=== PATIENT | male | born 1965 | race Two or more races ===

== ENCOUNTER 2023-11-07 09:17 | Outpatient (CLI) | payer MEDICAID | END 2023-11-07 23:59 | disposition home or self-care (01) | LOC: 64 CT 09:17 | PROVIDERS: ATTEND Physician Assistant | DX: J32.0 Chronic maxillary sinusitis (principal); H93.13 Tinnitus, bilateral | CPT/HCPCS: 70486 ==

== ENCOUNTER 2023-11-15 08:26 | Outpatient (CLI) | payer MEDICAID | END 2023-11-15 23:59 | disposition home or self-care (01) | LOC: VAS 08:26 | PROVIDERS: ATTEND Physician Assistant | DX: H93.13 Tinnitus, bilateral (principal) | CPT/HCPCS: 93880 ==